=== PATIENT | female | born 1960 | race Caucasian/White ===

== ENCOUNTER 2016-07-14 17:06 | Emergency (ER) | payer MEDICARE ==
[2016-07-14 19:14] LABS: HEMOGLOBIN 13.8 gm/dl (12.3-15.3); RED BLOOD COUNT 4.27 M/UL (4.00-5.10); WHITE BLOOD COUNT 7.2 K/UL (4.5-11.0)
[2016-07-14 20:20] LABS: BUN/CREATININE RATIO 17 (0-10)
== END 2016-07-15 00:05 | disposition home or self-care (01) ==
LOC: ER1 17:06
PROVIDERS: Emergency Medicine
DX: K57.32 Diverticulitis of large intestine without perforation or abscess without bleeding (principal); I10 Essential (primary) hypertension; F17.200 Nicotine dependence, unspecified, uncomplicated; Z85.528 Personal history of other malignant neoplasm of kidney
CPT/HCPCS: 36415; 80053; 81001; 83690; 84484; 85025; 87086; 96361; 96374; 96375; 99284; J2270; J2405; J7030

== ENCOUNTER 2016-07-24 17:35 | Emergency (ER) | payer MEDICARE | END 2016-07-24 18:39 | disposition left against medical advice (07) | LOC: ER1 17:35 | DX: Z53.21 Procedure and treatment not carried out due to patient leaving prior to being seen by health care provider (principal) ==

== ENCOUNTER 2016-07-25 10:29 | Emergency (ER) | payer MEDICARE ==
[2016-07-25 11:36] LABS: HEMOGLOBIN 14.3 gm/dl (12.3-15.3); RED BLOOD COUNT 4.47 M/UL (4.00-5.10); WHITE BLOOD COUNT 3.1 K/UL (4.5-11.0)
[2016-07-25 11:51] LABS: BUN/CREATININE RATIO 13 (0-10)
== END 2016-07-25 14:02 | disposition home or self-care (01) ==
LOC: ER1 10:29
PROVIDERS: Physician Assistant
DX: R10.32 Left lower quadrant pain (principal); R11.0 Nausea; R19.7 Diarrhea, unspecified
CPT/HCPCS: 36415; 80053; 81001; 82150; 83690; 85025; 96361; 96374; 96375; 99284; J2270; J2405; J7050; Q9962

== ENCOUNTER → 2020-09-19 | Outpatient (CLI) | payer MEDICARE ==
[~2020-09-19] MED LIST: NAPROXEN375 MG PO; NORCO 5-325 TA1 EACH PO
== END ==
LOC: KOH-I 09-16 10:00
DX: F17.210 Nicotine dependence, cigarettes, uncomplicated (principal); R91.1 Solitary pulmonary nodule
CPT/HCPCS: 71271

== ENCOUNTER → 2021-01-16 | Outpatient (CLI) | payer MEDICARE | LOC: ECHO 12:00 → EXRD 14:00 | DX: R60.0 Localized edema (principal); R31.29 Other microscopic hematuria; C64.1 Malignant neoplasm of right kidney, except renal pelvis; I34.0 Nonrheumatic mitral (valve) insufficiency | CPT/HCPCS: ECHO; 76775; 93306 ==

== ENCOUNTER → 2021-01-23 | Outpatient (CLI) | payer MEDICARE | LOC: KOH-I 11:10 | DX: R06.02 Shortness of breath (principal); R91.8 Other nonspecific abnormal finding of lung field | CPT/HCPCS: 71046 ==